=== PATIENT | female | born 1960 | race Two or more races ===

== ENCOUNTER → 2020-07-27 08:12 | Outpatient (BNVA) | payer MEDICARE, MEDICAID, SELFPAY | PROVIDERS: PCP Family Medicine; Referring Provider Family Medicine; Visit Provider Dietitian, Registered | DX: Z76.89 Persons encountering health services in other specified circumstances (principal) ==

== ENCOUNTER → 2022-07-04 14:58 | Outpatient (BNVA) | payer OTHER, MEDICAID, SELFPAY | PROVIDERS: PCP Internal Medicine; Visit Provider Physician Assistant Surgical | DX: Z90.3 Acquired absence of stomach [part of] (principal); E66.9 Obesity, unspecified; R11.10 Vomiting, unspecified | CPT/HCPCS: 99212 ==

== ENCOUNTER 2024-04-20 11:54 | Outpatient (REF) | payer OTHER, SELFPAY ==
[2024-04-20 13:18] LABS: MANUAL DIFF FLAG NO
[2024-04-20 13:52] LABS: Basophils Absolute Auto 0.1 X10*3/uL (0.0-0.2); Basophils Percent Auto 1.2 % (0-2); Eosinophils Absolute Auto 0.1 X10*3/uL (0.0-0.4); Eosinophils Percent Auto 0.9 % (0-4); Hematocrit 41.2 % (37.0-47.0); Hemoglobin 13.7 g/dl (12.0-16.0); Imm Gran Abs Auto 0.02 X10*3/uL (0.00-0.03); Imm Gran Pct Auto 0.3 % (0.0-0.4); Lymphocytes Absolute Auto 2.4 X10*3/uL (1.2-4.9); Lymphocytes Percent Auto 35.1 % (20-40); Mean Corpuscular HGB Conc 33.3 g/dl (31.0-35.0); Mean Corpuscular Hemoglobin 30.1 pg (27.0-33.0); Mean Corpuscular Volume 90.5 fL (80.0-98.0); Mean Platelet Volume 11.1 fL (9.4-12.3); Monocytes Absolute Auto 0.5 X10*3/uL (0.1-1.2); Monocytes Percent Auto 7.2 % (2-11); Neutrophils Absolute Auto 3.7 x10*3/uL (2.0-8.3); Neutrophils Percent Auto 55.3 % (45-73); Platelet Count 201 X10*3/uL (160-400); Red Blood Count 4.55 X10*6/uL (4.20-5.50); White Blood Count 6.8 X10*3/uL (4.8-10.8)
[2024-04-20 14:36] LABS: Estimated Average Glucose 108 mg/dL; Hemoglobin A1c % 5.4 % (<6.0)
[2024-04-20 14:59] LABS: Alanine Aminotransferase 25 U/L (0-31); Albumin Level 4.3 g/dL (3.5-5.0); Alkaline Phosphatase 102 U/L (39-117); Anion Gap 13 (12-20); Aspartate Amino Transferase 26 U/L (5-31); Bilirubin Total 0.4 mg/dL (0.0-1.0); Blood Urea Nitrogen 11 mg/dL (9-16); C Reactive Protein 0.55 mg/dL (< or = 0.50); Calcium 9.5 mg/dL (8.4-10.2); Carbon Dioxide 20 mmol/L (22-29); Chloride 111 mmol/L (96-108); Cholesterol 165 mg/dL (<200); Estimated Glomerular Filt Rate > 60; Ferritin 79 ng/mL (10-250); Glucose Random 96 mg/dL (60-115); HDL Cholesterol 38 mg/dL (>40); Insulin 20 uU/mL (2-29); Iron 88 mcg/dL (30-160); LDL Cholesterol Calculated 98 mg/dL (<100); Percent Iron Saturation 35 % (15-50); Potassium 3.9 mmol/L (3.3-5.1); Sodium 140 mmol/L (135-145); TSH reflex Free T4 1.11 uIU/mL (0.32-4.0); Total Iron Binding Capacity 254 mcg/dL (228-428); Total Protein 7.8 g/dL (6.5-8.0); Triglycerides 146 mg/dL (<150); Unsaturated Iron Binding 166 ug/dL; Vitamin D 25-OH Total 23.5 ng/mL (>30)
[2024-04-20 15:10] LABS: Folate 7.3 ng/mL (> or = 4.0); Vitamin B12 296 pg/mL (200-900)
[2024-04-23 09:08] LABS: Zinc 62 mcg/dL (60-130)
[2024-04-23 23:43] LABS: Vitamin A 44 mcg/dL (38-98)
[2024-04-26 06:40] LABS: Vitamin B1 <6 nmol/L (8-30)
== END 2024-04-20 11:55 | disposition home or self-care (01) ==
LOC: HO.LAB 11:54
PROVIDERS: PCP Internal Medicine; Visit Provider Physician Assistant Surgical
DX: Z13.6 Encounter for screening for cardiovascular disorders (principal); Z13.1 Encounter for screening for diabetes mellitus; Z90.3 Acquired absence of stomach [part of]
CPT/HCPCS: 36415; 80053; 80061; 82306; 82607; 82728; 82746; 83036; 83525; 83540; 84425; 84443; 84590; 84630; 85025; 86140; 99212

== ENCOUNTER 2024-04-20 11:54 | Outpatient (AMB) | payer OTHER, MEDICAID, SELFPAY ==
--- NOTE | 2024-04-20 11:56 | A.OFFVIS_ITS ---
VS Expanded 04/20/24 12:11 BP 124/71 Blood Pressure Location Rt brachial Blood Pressure Position Sitting Pulse 97 Pulse Source Pulse Oximeter Temp 97.4 F Temperature Source Temporal Artery Scan Pulse Oximetry 97 Oxygen Delivery Method Room Air Height 5 ft 3 in Weight 218 lb BMI 38.6 Body Fat % 44.1 Body Fat Mass 96.2 Fat Free Mass 121.6 Visceral Fat Rating 14.0 Body Water % 39.6 Body Water Mass 86.2 Muscle Mass/Score 115.6 Basal Metabolic Rate/Score 1,689 Intake Visit Reasons: (OV) PO LSG 05/04/18 Allergies latex [LATEX] Allergy (Unknown, Verified 04/20/24 12:02) RASH Latex Allergy (Unknown, Uncoded 04/20/24 12:02) rash Medication List - Last Reconciled 04/20/24 by PAIGE Rosenthal gabapentin 100 mg PO BEDTIME pantoprazole 20 mg PO DAILY paroxetine HCl 40 mg PO DAILY quetiapine 400 mg PO BEDTIME topiramate 200 mg PO BID valbenazine (Ingrezza) 40 mg PO DAILY HPI Comments Details: This?is a?64 yo female who is s/p LSG 05/04/2018. Presents for 6 year post op visit. Weight unchanged since last visit in Jun 2022. Pt reports no problems with vomiting, abdominal pain. Does report that she will vomit if she eats too close to bedtime and lies down. Pt reports that she is going to have a colonoscopy soon due to finding of blood in stool. Present meal plan includes: 10am- Celebrate 4:1 shake, 2 scoops in 8oz 1% milk 1pm- 2 eggs 4pm- dinner, 3oz protein, 3oz veg 7pm- same shake was given this meal plan at last visit after pt complained of vomiting has a glass of chocolate milk with medicine at 9am 10am- 2 eggs with bread 3pm- dinner of rice, beans, protein, lettuce, tomatoes in evening- frozen Icees Exercise routine includes: has not been walking due to hot weather; has some knee and back pain if walking for more than 20-30 min PFSH Social History (Updated 07/04/22 @ 15:41 by Falguni Brar CMA) Alcohol intake: current Alcohol intake frequency: a few times a week Patient Tobacco Use Status: Never used Tobacco Physical Exam Vital Signs: Last Vital Signs Temp 97.4 F 04/20/24 12:11 Pulse 97 04/20/24 12:11 BP 124/71 04/20/24 12:11 Pulse Ox 97 04/20/24 12:11 Oxygen Delivery Method Room Air 04/20/24 12:11 BMI result Body Mass Index 38.6 Assessment & Plan Assessment & Plan (1) Obesity: Code(s): E66.9 - Obesity, unspecified Category: Medical (2) Status post sleeve gastrectomy: Code(s): Z90.3 - Acquired absence of stomach [part of] Category: Medical Plan Pt is overall low in protein. She wants to lose weight for better BP control. breakfast- protein shake instead of chocolate milk, pt would like to buy shake from [employer] [facility], also gave protein shake option handout lunch- 2 eggs, would avoid bread or use low carb options dinner- protein with veg, can have rice or beans but watch portion sizes after dinner no more Icees- try sugar free popsicle Discussed the importance of consistent exercise, gave pt exercise handout and highlighted walking videos that she can do at home. Labs ordered. RTC 3 months, texted plan to pt and encouraged her to reach out between visits with any concerns. I spent a total of 30 minutes reviewing/updating records, examining the patient and counseling the patient on weight management as detailed above. Orders: Orders Insulin Today Z90.3 - Acquired absence of stomach [part of] Hemoglobin A1c Today Z90.3 - Acquired absence of stomach [part of] Comprehensive Met. Panel Today Z90.3 - Acquired absence of stomach [part of] Vitamin B12 and Folate Today Z90.3 - Acquired absence of stomach [part of] Zinc Today Z90.3 - Acquired absence of stomach [part of] C Reactive Protein Today Z90.3 - Acquired absence of stomach [part of] Vitamin A Today Z90.3 - Acquired absence of stomach [part of] Ferritin Today Z90.3 - Acquired absence of stomach [part of] Complete Blood Count Auto Diff Today Z90.3 - Acquired absence of stomach [part of] Lipid Panel Today Z90.3 - Acquired absence of stomach [part of] IRON PROFILE Today Z90.3 - Acquired absence of stomach [part of] Vitamin B1 Today Z90.3 - Acquired absence of stomach [part of] TSH reflex Free T4 Today Z90.3 - Acquired absence of stomach [part of] Vitamin D 25-OH Total Today Z90.3 - Acquired absence of stomach [part of]
[2024-04-20 12:11] VITALS: BP 124/71; PULSE 97; TEMP 36.3; O2SAT 97; BMI 38.6
== END 2024-04-20 12:51 | disposition home or self-care (01) ==
PROVIDERS: PCP Internal Medicine; Visit Provider Physician Assistant Surgical
DX: E66.9 Obesity, unspecified (principal); Z90.3 Acquired absence of stomach [part of]
CPT/HCPCS: 99214; G2211

== ENCOUNTER 2025-03-21 09:55 | Outpatient (AMB) | payer MEDICARE, SELFPAY ==
--- NOTE | 2025-03-21 10:12 | MHC.OFFVISWM ---
VS Expanded 03/21/25 10:29 BP 140/85 H Blood Pressure Location Rt brachial Blood Pressure Position Sitting Pulse 100 Pulse Source Pulse Oximeter Temp 96.8 F Temperature Source Temporal Artery Scan Pulse Oximetry 95 Oxygen Delivery Method Room Air Height 5 ft 3 in Weight 233 lb 9.6 oz BMI 41.4 Body Fat % 47.3 Body Fat Mass 110.4 Fat Free Mass 123.0 Visceral Fat Rating 16.0 Body Water % 37.3 Body Water Mass 87.0 Muscle Mass/Score 116.8 Basal Metabolic Rate/Score 1,729 Intake Visit Reasons: (OV) PO LSG 05/04/18 *GLP-1* Allergies latex [LATEX] Allergy (Unknown, Verified 03/21/25 10:20) RASH Latex Allergy (Unknown, Uncoded 04/20/24 12:02) rash Medication List - Last Reconciled 03/21/25 by PAIGE Rosenthal mirtazapine 15 mg PO BEDTIME omeprazole 40 mg PO DAILY quetiapine 400 mg PO BEDTIME quetiapine 100 mg PO BEDTIME tirzepatide (weight loss) (Zepbound) 2.5 mg (0.5 mL) subcut QWEEK topiramate 50 mg PO DAILY topiramate 100 mg PO DAILY HPI Comments Details: This?is a?65?yo F who is s/p LSG 05/04/2018. Weight gain of 15.6lbs since last OV in April 2024. Present meal plan includes: -given at last visit breakfast- protein shake lunch- 2 eggs, would avoid bread or use low carb options dinner- protein with veg, can have rice or beans but watch portion sizes after dinner no more Icees- try sugar free popsicle pt reports no structured meal plan currently, minimal exercise PFSH Social History (Updated 03/21/25 @ 10:23 by Falguni Brar CMA) Alcohol intake: current Alcohol intake frequency: a few times a month Patient Tobacco Use Status: Never used Tobacco Physical Exam Vital Signs: Last Vital Signs Temp 96.8 F 03/21/25 10:29 Pulse 100 03/21/25 10:29 BP 140/85 H 03/21/25 10:29 Pulse Ox 95 03/21/25 10:29 Oxygen Delivery Method Room Air 03/21/25 10:29 BMI result Body Mass Index 41.4 Assessment & Plan Assessment & Plan (1) Status post sleeve gastrectomy: Code(s): Z90.3 - Acquired absence of stomach [part of] Category: Surgical (2) Obesity: Code(s): E66.9 - Obesity, unspecified Category: Medical Plan Pt is interested in starting GLP1. Reviewed contraindications, discussed dosing. Discussed need for adequate protein intake while on GLP1s as well as frequent communication with our office. Pt will check in with me weekly and is aware that subsequent Rx will be dependent on frequent communication. Texted Traction linda download info. Labs ordered. RTC 3-4mo. Orders: Orders Hemoglobin A1c Today Z90.3 - Acquired absence of stomach [part of] Complete Blood Count Auto Diff Today Z90.3 - Acquired absence of stomach [part of] Lipid Panel Today Z90.3 - Acquired absence of stomach [part of] IRON PROFILE Today Z90.3 - Acquired absence of stomach [part of] Vitamin B12 and Folate Today Z90.3 - Acquired absence of stomach [part of] Zinc Today Z90.3 - Acquired absence of stomach [part of] Vitamin B1 Today Z90.3 - Acquired absence of stomach [part of] Vitamin A Today Z90.3 - Acquired absence of stomach [part of] TSH reflex Free T4 Today Z90.3 - Acquired absence of stomach [part of] Ferritin Today Z90.3 - Acquired absence of stomach [part of] Vitamin D 25-OH Total Today Z90.3 - Acquired absence of stomach [part of] Insulin Today Z90.3 - Acquired absence of stomach [part of] Comprehensive Met. Panel Today Z90.3 - Acquired absence of stomach [part of] C Reactive Protein Today Z90.3 - Acquired absence of stomach [part of] Medications: New tirzepatide (weight loss) (Zepbound) for 4 weeks 2.5 mg (0.5 mL) subcut QWEEK 2 mL 0RF
[2025-03-21 10:29] VITALS: BP 140/85; PULSE 100; TEMP 36; O2SAT 95; BMI 41.4
--- OUTSIDE RECORDS SUMMARY | 2025-03-21 11:16 | XMS_ITS | Referral Summary ---
Author Organization [facility] Address [address] [place] [address] Care Team Providers Care Family Support Specialist Name Role Phone Cris Colón AVILA Primary Care Provider [phone] Allergies Active Allergy Reactions Criticality Noted Date Comments Latex Contact Dermatitis 11/14/2024 Medications ARIPiprazole (ABILIFY) 20 mg tablet Take 20 mg by mouth daily. Active buPROPion (WELLBUTRIN) 100 mg tablet Take 100 mg by mouth daily. Active QUEtiapine (SEROquel) 100 mg tablet Take 100 mg by mouth nightly. 10/13/2024 Active topiramate (TOPAMAX) 100 mg tablet Take 150 mg by mouth every night. 11/03/2024 Active venlafaxine XR (EFFEXOR XR) 150 mg capsule Take 150 mg by mouth every night. 10/13/2024 Active Social History Tobacco Use Types Packs/Day Years Used Date Smoking Tobacco: Former Cigarettes 1.5 40.4 1 985 - 1970 Smokeless Tobacco: Never Tobacco Cessation:Counseling Given: Not Answered Alcohol Use Standard Drinks/Week Comments Yes 0 (1 standard drink = 0.6 oz pur e alcohol) 1 drink weekly Comments No Sex and Gender Information Value Date Recorded Sex Assigned at Female 11/14/2024 12:12 PM EST Legal Sex Female 3:26 PM EST Gender Identity Not on file Sexual Orientation Not on file Last Filed Vital Signs Vital Sign Reading Time Taken Comments Blood Pressure 125/75 11/14/2024 1:41 PM EST Pulse 80 11/14/2024 1:41 PM EST Temperature 36.7 ??C (98.1 ??F) 11/14/2024 12:[address] Respiratory Rate 17 11/14/2024 1:41 PM EST Oxygen Saturation 97% 11/14/2024 1:41 PM EST Inhaled Oxygen Concentration - - Weight 106.1 kg (234 lb) 11/14/2024 12:40 PM EST Height 160 cm (5' 3 ) 11/14/2024 12:40 PM EST Body Mass Index 41.45 11/14/2024 12:40 PM EST Plan of Treatment Not on file Procedures * Due to [place] [employer] law, this organization might not be sharing negative HIV tests. Procedure Name Priority Date/Time Associated Diagnosis Comments COLONOSCOPY 11/14/2024 COLOGUARD 03/19/2024 from Last 3 Months or Most Recently Relevant to Health Maintenance Results * Due to [place] [employer] law, this organization might not be sharing negative HIV tests. * COLONOSCOPY (11/14/2024) Narrative Procedure Note Sveta Menjivar MD - 11/14/2024 12:52 PM EST [facility] Patient Name: Rosie Mojica Procedure Date: 11/14/2024 12:52 PM Date of : 1960 Admit Type: Outpatient Age: 64 Room: GI PROCEDURE Gender: Female Note Status: Finalized Attending MD: Sveta Menjivar MD Procedure: Colonoscopy Indications: High risk colon cancer surveillance: Personal history of colonicpolyps Comorbidities Providers: Sveta Menjivar MD Referring MD: Cris Colón NP (Referring MD) Requesting Provider: Medicines: Monitored Anesthesia Care Complications: No immediate complications. Estimated Blood Loss: Estimated blood loss: none. Procedure: After I obtained informed consent, the scope was passed under direct vision. Throughout theprocedure, the patient's blood pressure, pulse, and oxygen saturations were monitored continuously. The Colonoscope was introduced through the anus and advanced to the cecum, identified by appendiceal orifice and ileocecal valve. The colonoscopy was performed without difficulty. The patient tolerated the procedure well. The quality of the bowel preparation was evaluated using the BBPS (BostonBowel Preparation Scale) with scores of: Right Colon = 1 (portion of mucosa seen, but other areas not wellseen due to staining, residual stool and/or opaqueliquid), Transverse Colon = 1 (portion of mucosa seen, but other areas not well seen due to staining, residual stool and/or opaque liquid) and Left Colon = 2(minor amount of residual staining, small fragments ofstool and/or opaque liquid, but mucosa seen well). Thetotal BBPS score equals 4. The quality of the bowel preparation was fair. Findings: Two sessile polyps were found in the ascending colon. The polyps were4 to 5 mm in size. These polyps were removed with a cold snare.Resection and retrieval were complete. Non-bleeding internal hemorrhoids were found during retroflexion. The hemorrhoids were medium-sized and Grade I (internal hemorrhoids thatdo not prolapse). The exam was otherwise without abnormality. A few diverticula were found in the sigmoid colon. There was noevidence of diverticular bleeding. Impression: - Preparation of the colon was fair. - Two 4 to 5 mm polyps in the ascending colon,removed with a cold snare. Resected and retrieved. - Non-bleeding internal hemorrhoids. - The examination was otherwise normal. Recommendation: - Await pathology results. - Return to my office in 4 weeks. Sveta Menjivar MD 11/14/2024 1:28:48 PM Number of Addenda: 0 Note Initiated On: 11/14/2024 12:52 PM us Sveta Menjivar MD PROVATION PROCEDURES Final Resul t * Cologuard (03/19/2024) 03/19/2024 us [facility]base [facility] Final Resu lt from Last 3 Months or Most Recently Relevant to Health Maintenance Insurance [facility] Care Teams Family Support Specialist Relationship Specialty Start Date End Date Cris Colón NP [address] [place] [address] PCP - General Nurse Practitioner 11/14/24
== END 2025-03-21 11:01 | disposition home or self-care (01) ==
LOC: HO.HBS 09:56
PROVIDERS: PCP Internal Medicine; Visit Provider Physician Assistant Surgical
DX: E66.9 Obesity, unspecified (principal); Z68.41 Body mass index [BMI] 40.0-44.9, adult; Z90.3 Acquired absence of stomach [part of]; Z98.84 Bariatric surgery status
CPT/HCPCS: 99214; G2211

== ENCOUNTER → 2025-03-21 09:55 | Outpatient (BNVA) | payer MEDICARE, SELFPAY | PROVIDERS: PCP Internal Medicine; Visit Provider Physician Assistant Surgical | DX: E66.9 Obesity, unspecified (principal); Z90.3 Acquired absence of stomach [part of]; Z68.41 Body mass index [BMI] 40.0-44.9, adult | CPT/HCPCS: 99212 ==

== ENCOUNTER 2025-03-23 13:00 | Outpatient (REF) | payer MEDICARE, SELFPAY ==
[2025-03-23 13:17] LABS: MANUAL DIFF FLAG NO
[2025-03-23 13:48] LABS: Basophils Absolute Auto 0.1 X10*3/uL (0.0-0.2); Basophils Percent Auto 1.4 % (0-2); Eosinophils Absolute Auto 0.2 X10*3/uL (0.0-0.4); Eosinophils Percent Auto 2.1 % (0-4); Hematocrit 43.5 % (37.0-47.0); Hemoglobin 14.3 g/dl (12.0-16.0); Imm Gran Abs Auto 0.02 X10*3/uL (0.00-0.03); Imm Gran Pct Auto 0.3 % (0.0-0.4); Lymphocytes Absolute Auto 2.9 X10*3/uL (1.2-4.9); Lymphocytes Percent Auto 39.8 % (20-40); Mean Corpuscular HGB Conc 32.9 g/dl (31.0-35.0); Mean Corpuscular Hemoglobin 29.4 pg (27.0-33.0); Mean Corpuscular Volume 89.5 fL (80.0-98.0); Mean Platelet Volume 10.9 fL (9.4-12.3); Monocytes Absolute Auto 0.4 X10*3/uL (0.1-1.2); Monocytes Percent Auto 6.1 % (2-11); Neutrophils Absolute Auto 3.7 x10*3/uL (2.0-8.3); Neutrophils Percent Auto 50.3 % (45-73); Platelet Count 191 X10*3/uL (160-400); Red Blood Count 4.86 X10*6/uL (4.20-5.50); Red Cell Distribution Width 13.2 % (11.0-16.0); White Blood Count 7.2 X10*3/uL (4.8-10.8)
[2025-03-23 13:56] LABS: Estimated Average Glucose 120 mg/dL; Hemoglobin A1c % 5.8 % (<6.0); Total Hemoglobin (HGBA1C) 3746.2439 umol/L
[2025-03-23 14:22] LABS: Alanine Aminotransferase 47 U/L (0-31); Albumin Level 4.6 g/dL (3.5-5.0); Alkaline Phosphatase 117 U/L (39-117); Anion Gap 11 (12-20); Aspartate Amino Transferase 42 U/L (5-31); Bilirubin Total 0.4 mg/dL (0.0-1.0); Blood Urea Nitrogen 12 mg/dL (9-16); C Reactive Protein 0.55 mg/dL (< or = 0.50); Calcium 9.3 mg/dL (8.4-10.2); Carbon Dioxide 23 mmol/L (22-29); Chloride 110 mmol/L (96-108); Cholesterol 162 mg/dL (<200); Estimated Glomerular Filt Rate > 60; Glucose Random 100 mg/dL (60-115); HDL Cholesterol 40 mg/dL (>40); Iron 65 mcg/dL (30-160); LDL Cholesterol Calculated 99 mg/dL (<100); Percent Iron Saturation 25 % (15-50); Sodium 140 mmol/L (135-145); Total Iron Binding Capacity 260 mcg/dL (228-428); Total Protein 7.8 g/dL (6.5-8.0); Triglycerides 117 mg/dL (<150); Unsaturated Iron Binding 195 ug/dL
[2025-03-23 14:31] LABS: Ferritin 73 ng/mL (10-250); Insulin 20 uU/mL (2-29); TSH reflex Free T4 1.16 uIU/mL (0.32-4.0); Vitamin D 25-OH Total 29.8 ng/mL (>30)
[2025-03-23 14:41] LABS: Folate 14.3 ng/mL (> or = 4.0); Vitamin B12 443 pg/mL (200-900)
--- OUTSIDE RECORDS SUMMARY | 2025-03-23 15:07 | XMS_ITS | Referral Summary ---
Author Organization [facility] Address [address] [place] [address] Care Team Providers Care Meat Counter Clerk Name Role Phone Cris Colón AVILA Primary Care Provider [phone] Allergies Active Allergy Reactions Criticality Noted Date [...] Not on file Procedures * Due to [place] [employer] law, this organization might not be sharing negative HIV tests. Procedure Name Priority Date/Time Associated Diagnosis Comments COLONOSCOPY 11/14/2024 COLOGUARD 03/19/2024 from Last 3 Months or Most Recently Relevant to Health Maintenance Results * Due to [place] [employer] law, this organization might not be sharing negative HIV tests. * COLONOSCOPY (11/14/2024) Narrative Procedure Note Sveta Menjivar MD - 11/14/2024 12:52 PM EST [facility] Patient Name: Rosie Mojica Procedure Date: 11/14/2024 [...] * Cologuard (03/19/2024) 03/19/2024 [facility] Final Resu lt from Last 3 Months or Most Recently Relevant to Health Maintenance Insurance [facility] Care Teams Meat Counter Clerk Relationship Specialty Start Date End Date Cris Colón NP [address] [place] [address] PCP - General Nurse Practitioner 11/14/24
[2025-03-27 04:19] LABS: Zinc 77 mcg/dL (60-130)
[2025-03-27 17:29] LABS: Vitamin B1 13 nmol/L (8-30)
[2025-03-28 02:59] LABS: Vitamin A 52 mcg/dL (38-98)
== END 2025-03-23 13:01 | disposition home or self-care (01) ==
LOC: HO.LAB 13:00
PROVIDERS: Visit Provider Physician Assistant Surgical
DX: Z90.3 Acquired absence of stomach [part of] (principal)
CPT/HCPCS: 36415; 80053; 80061; 82306; 82607; 82728; 82746; 83036; 83525; 83540; 84425; 84443; 84590; 84630; 85025; 86140

== ENCOUNTER 2025-06-13 12:30 | Outpatient (AMB) | payer MEDICARE, SELFPAY ==
--- NOTE | 2025-06-13 12:14 | A.OFFVIS_ITS ---
VS Expanded 06/13/25 12:33 Height 5 ft 3 in Weight 230 lb BMI 40.7 Intake Visit Reasons: (phone) PO LSG 05/04/18 *GLP-1* Allergies latex (LATEX) Allergy (Unknown, Verified 05/17/25 16:16) RASH Latex Allergy (Unknown, Uncoded 05/17/25 16:16) rash Medication List - Last Reconciled 06/13/25 by PAIGE Rosenthal cholecalciferol (vitamin D3) 25 mcg PO DAILY mirtazapine 15 mg PO BEDTIME omeprazole 40 mg PO DAILY quetiapine 400 mg PO BEDTIME quetiapine 100 mg PO BEDTIME tirzepatide (weight loss) (Zepbound) 5 mg (0.5 mL) subcut QWEEK topiramate 50 mg PO DAILY topiramate 100 mg PO DAILY HPI Comments Details: This?is a?65?yo F who is s/p LSG 05/04/2018. Started on Zepbound since last visit- weight loss of 3.6lbs since initiating. Tolerating well without side effects. Starting 5mg dose tomorrow. Present meal plan includes: -given at last visit breakfast- protein shake lunch- 2 eggs, would avoid bread or use low carb options dinner- protein with veg, can have rice or beans but watch portion sizes Exercise: a little - likes to walk [facility] Social History (Updated 03/21/25 @ 10:23 by Falguni Brar [facility]) Alcohol intake: current Alcohol intake frequency: a few times a month Patient Tobacco Use Status: Never used Tobacco Telehealth Telehealth Telehealth Platform: Telephone Location of provider rendering services: practice address Location of patient: address on file Patient Identification confirmed using: Name, : Yes Telehealth method: voice only Patient verbally consented to treatment: Yes Patient verbally consented to billing insurance company: Yes Patient informed of any privacy concerns related to visit: Yes Minutes spent on Phone/Video with Pt.: 10 Assessment & Plan Assessment & Plan (1) Obesity: Code(s): E66.9 - Obesity, unspecified Category: Medical (2) Status post sleeve gastrectomy: Code(s): Z90.3 - Acquired absence of stomach [part of] Category: Surgical Plan Continue GLP1. Pt will continue to communicate regarding refills and weight loss progress. Labs were done in March. RTC 4 months for phone visit.
[2025-06-13 12:33] VITALS: BMI 40.7
--- OUTSIDE RECORDS SUMMARY | 2025-06-13 13:42 | XMS_ITS | Clinical Summary ---
Author Organization [facility] Address [address] [place] [address] Care Team Providers Care Director Software Development Name Role Phone Cris Colón AVILA Primary Care Provider [phone] Allergies Active Allergy Reactions Criticality Noted Date [...] Used Date Smoking Tobacco: Former Cigarettes 1.5 40.7 1 985 - 1970 Smokeless Tobacco: Never [...] 80 11/14/2024 1:41 PM EST Temperature 36.7 C (98.1 F) 11/14/2024 12:40 PM EST Respiratory Rate 17 11/14/2024 1:41 PM EST Oxygen Saturation 97% 11/14/2024 1:41 PM EST Inhaled Oxygen Concentration - - Weight 106.1 kg (234 lb) 11/14/2024 12:40 PM EST Height 160 cm (5' 3 ) 11/14/2024 12:40 PM EST Body Mass Index 41.45 11/14/2024 12:40 PM EST Plan of Treatment Health Maintenance Due Date Last Done Comments FOBT / Fit Test 1960 HIV Screening 1960 Sigmoidoscopy 1960 Diabetes Screening 02/27/1996 Pneumococcal Vaccine: 50+ Years (1 of 1 - PCV) 2011 Zoster Vaccines (1 of 2) 2011 RSV Vaccine (60+ years old and patients) (1 - Risk 60-74 years 1-dose series) 2021 COVID-19 Vaccine (4 - season) 2024 10/10/2021, 05/10/2021, 04/10/2021 Alcohol/Substance Use Screening 10/12/2024 Influenza Vaccine (#1) 2025 8, 06/19/2017, 10/17/2016, Additional history exists DTaP,Tdap,and Td Vaccines (3 - Td or Tdap) 06/13/2026 06/13/2016, 09/12/2010 Cologuard 03/19/2027 03/19/2024, 03/19/2024 Colon Cancer Screening 11/14/2034 Colonoscopy 11/14/2034 11/14/2024, 11/14/2024 Hepatitis B Vaccines Aged Out No long er eligible based on patient's age to complete this topic Procedures * Due to [place] [employer] law, this organization might not be sharing negative HIV tests. Procedure Name Priority Date/Time Associated Diagnosis Comments COLONOSCOPY 11/14/2024 COLOGUARD 03/19/2024 from Last 3 Months or Most Recently Relevant to Health Maintenance Results * Due to [place] [employer] law, this organization might not be sharing negative HIV tests. * COLONOSCOPY (11/14/2024) Narrative Procedure Note Sveta Menjivar MD - 11/14/2024 12:52 PM EST [facility] Patient Name: Rosie Mojica Procedure Date: [...] * Cologuard (03/19/2024) 03/19/2024 us Onbase Scan [facility] LAB ORDERABLES Final Resu lt from Last 3 Months or Most Recently Relevant to Health Maintenance Insurance [facility] MCR REPLACE [employer] Care Teams Director Software Development Relationship Specialty Start Date End Date Cris Colón NP [address] [place] [address] PCP - General Nurse Practitioner 11/14/24
--- OUTSIDE RECORDS SUMMARY | 2025-06-13 13:42 | XMS_ITS | Clinical Summary ---
Author Organization [facility] Address [address] [place] [address] Care Team Providers Care Floor Covering Contractor Name Role Phone Tasha Alex GRAMAJO Primary Care Provider [phone] Source Comments PLEASE NOTE, if this patient is a minor, it may be UNLAWFUL to discuss sensitive information that is contained in these records (such as FAMILY PLANNING, MENTAL HEALTH or SUBSTANCE ABUSE) with the minor patient's parent or other person without the patient's specific authorization.[facility] Allergies No known active allergies Medications ALPRAZolam (XANAX) 0.25 mg tabletIndicatio ns:anxiety with depression Take 0.25 mg by mouth nightly at bedtime as needed for sleep or anxiety. Indications: Anxiety with Depression Active buPROPion (WELLBUTRIN) 100 mg tabletIndicatio ns:anxiety with depression Take 100 mg by mouth once daily. Indications: Anxiety with Depression Active baclofen (LIORESAL) 10 mg tabletIndicatio ns:muscle spasticity of spinal origin Take 10 mg by mouth 3 (three) times daily. Indications: Muscle Spasticity of Spinal Origin Active cyclobenzaprine (FLEXERIL) 10 mg tabletIndicatio ns:muscle spasm Take 10 mg by mouth 3 (three) times daily as needed for muscle spasms. Indications: Muscle Spasm Active ARIPiprazole (ABILIFY) 20 mg tabletIndicatio ns:bipolar disorder in remission,major depressive disorder treatment adjunct Take 20 mg by mouth once daily. Indications: Bipolar Disorder in Remission, Depression Treatment Adjunct Active gabapentin (NEURONTIN) 100 mg capsule Take 100 mg by mouth 3 (three) times daily. Active ibuprofen (ADVIL,MOTRIN) 800 mg tabletIndicatio ns:pain Take 800 mg by mouth 3 (three) times daily as needed for pain. Indications: Pain Active hydrochlorothia zide (HYDRODIURIL) 25 mg tabletIndicatio ns:hypertension Take 1 Tab by mouth once daily. Indications: Hypertension 30 Tab 3 6 Active QUEtiapine (SEROQUEL) 100 mg tabletIndicatio ns:major depressive disorder treatment adjunct Take 1 Tab by mouth nightly at bedtime. Indications: Depression Treatment Adjunct 30 Tab 3 6 Active DULoxetine (CYMBALTA) [address] capsuleIndicati ons:anxiety with depression,fibr omyalgia Take 1 Cap by mouth once daily. Swallow whole, do not crush or chew. Indications: Anxiety with Depression, Fibromyalgia 30 Cap 3 6 Active traZODone (DESYREL) 100 mg tablet TAKE ONE TABLET BY MOUTH ONCE DAILY AT BEDTIME 30 Tab 0 6 Active Active Problems Problem Noted Date Diagnosed Date Anxiety and depression 06/13/2016 Suicidal ideation 06/13/2016 Primary insomnia 06/13/2016 Fatty liver 06/13/2016 Morbid obesity ([facility]) 06/13/2016 Fibromyalgia 06/13/2016 Abdominal pain 04/09/2016 Overview (04/09/2016): Abdominal ultrasound from [facility] showed enlarged liver with an increased echogenic pattern consistent with fatty infiltration or diffuse hepatocellular disease Immunizations Immunization Administration Dates Next Due INFLUENZA, SEASONAL, INJECTABLE, PRESERVATIVE FR EE 06/13/2016 TDAP 06/13/2016 Social History Tobacco Use Types Packs/Day Years Used Date Smoking Tobacco: Former Alcohol Use Standard Drinks/Week Comments No 0 (1 standard drink = 0.6 oz pur e alcohol) Social Connections Answer Date Recorded Social Connections and Isolation 0 06/05/2019 Financial Resource Strain Answer Date R ecorded Financial Resource Strain 0 2018 Stress Answer Date Recorded Stress 0 06/05/2019 Physical Activity Answer Date Recorded Physical Activity 0 06/05/2019 Food Insecurity Answer Date Recorded Food 0 06/05/2019 Transportation Needs Answer Date Record ed Transportation 0 06/05/2019 Housing Stability Answer Date Recorded Housing 0 06/05/2019 Safety and Environment Answer Date Ezra rded Safety 0 06/05/2019 Utilities Answer Date Recorded Utilities 0 06/05/2019 Employment Answer Date Recorded Employment 0 06/05/2019 Comments No Sex and Gender Information Value Date Recorded Sex Assigned at Not on file Legal Sex Female 7:39 AM PDT Gender Identity Not on file Sexual Orientation Not on file Last Filed Vital Signs Vital Sign Reading Time Taken Comments Blood Pressure 132/88 06/13/2016 1:12 PM EDT Pulse 72 06/13/2016 1:12 PM EDT Temperature 36.6 C (97.8 F) 06/13/2016 1:12 PM EDT Respiratory Rate 16 06/13/2016 1:12 PM EDT Oxygen Saturation - - Inhaled Oxygen Concentration - - Weight 113.9 kg (251 lb) 06/13/2016 1:12 PM EDT Height 160 cm (5' 2.99 ) 06/13/2016 1:12 PM EDT Body Mass Index 44.47 06/13/2016 1:12 PM EDT Plan of Treatment Not on file Insurance [place] Care Teams Floor Covering Contractor Relationship Specialty Start Date End Date Alex Cordova NP [address] [place] [id number] PCP - General 08/19/18
== END 2025-06-13 12:37 | disposition home or self-care (01) ==
LOC: HO.HBS 12:30
PROVIDERS: PCP Nurse Practitioner; Visit Provider Physician Assistant Surgical
DX: E66.01 Morbid (severe) obesity due to excess calories (principal); Z68.41 Body mass index [BMI] 40.0-44.9, adult; Z90.3 Acquired absence of stomach [part of]; Z98.84 Bariatric surgery status
CPT/HCPCS: 99213; G2211